=== PATIENT | female | born 1965 | race American Indian/Alaskan Native ===

== ENCOUNTER 2016-11-24 05:50 | Day surgery (SDC) | payer MEDICAID ==
[2016-11-24 06:52] LABS: Basophils % (Auto) 0.9 % (0.0-1.8); Hematocrit 33.9 % (30.3-42.9); Hemoglobin 11.3 gm/dl (10.1-14.3); Mean Corpuscular HGB Conc 34 % (30-34); Mean Corpuscular Hemoglobin 32 pg (28-32); Mean Corpuscular Volume 94 fl (79-97); Platelet Count 303 K/mm3 (140-440); Red Cell Distribution Width 13.4 % (13.2-15.2); White Blood Count 5.5 K/mm3 (4.5-11.0)
[2016-11-24] MEDS ORDERED: NACL 0.9% 500 ML 500 ML IV SCH (07:00)
[2016-11-24 07:02] LABS: Blood Urea Nitrogen 16 mg/dL (7-17); Calcium 8.9 mg/dL (8.4-10.2); Carbon Dioxide 24 mmol/L (22-30); Chloride 103.3 mmol/L (98-107); Glucose 86 mg/dL (65-100); Sodium 140 mmol/L (137-145)
[2016-11-24 07:07] LABS: INR 1.06 (0.87-1.13)
[2016-11-24 07:08] LABS: Anion Gap 17 mmol/L; Potassium 3.8 mmol/L (3.6-5.0)
[2016-11-24] MEDS ORDERED: CALAN ONE (08:01)
[2016-11-24] MEDS ORDERED: XYLOCAINE 2% INFILTRATI ONE (08:01)
[2016-11-24] MEDS ORDERED: HEPARIN/NS 5000 UNIT/500ML(CATH LAB) 1,000 ML IR ONE (08:01)
[2016-11-24] MEDS ORDERED: NITROGLYCERIN SYRINGE 3 ML ONE (08:01)
[2016-11-24] MEDS ORDERED: HEPARIN 10,000 UNITS/10 ML ONE (08:01)
[2016-11-24] MEDS: SUBLIMAZE ONE ×6 (08:28→09:04)
[2016-11-24] MEDS: VERSED ONE ×2 (08:28→08:33)
--- NOTE | 2016-11-24 11:32 | Discharge Summary ---
Short Stay Discharge Plan Activity: advance as tolerated Diet: low fat, low cholesterol, low salt Special Instructions: other (Post cardiac cath instructions) Follow up with: BLAS TREVINO FNP [Primary Care Provider] - 7 Days PIPO FLETCHER MD [Staff Physician] - 7 Days Forms: [employer] PCI D/C Instructions
[2016-11-24 12:04] VITALS: BP 114/85
--- NOTE | 2016-11-27 20:08 | Cardiac Catherization Report ---
HISTORY: The patient is a 50-year-old female with a history of angina and an abnormal stress test. Coronary angiography was recommended. PROCEDURE: Left heart catheterization, ventriculography, and coronary angiography via the right radial artery using 6-Ser[place] Mara catheters and the pigtail catheter. COMPLICATIONS: None. HEMODYNAMICS: Central aortic pressure 103/70, left ventricular pressure 108/21. ANGIOGRAPHIC RESULTS: 1. Left ventricle: The ventriculogram reveals a normal-sized left ventricle with normal systolic function. The ejection fraction is 60-65%. There appears to be left ventricular hypertrophy. 2. Right coronary artery: This is a dominant vessel. The vessel is irregular and tortuous. There are no remarkable lesions. 3. Left coronary artery: Irregular and tortuous. There are no significant lesions. The left main is very short. FINAL IMPRESSION: 1. Angina and an abnormal stress test. There are no significant coronary lesions. Consider coronary spasm. Consider other organ systems as possible etiology of this patient's chest pain. 2. Normal left ventricular function with probable left ventricular hypertrophy. PLAN: Aggressive medical therapy, CAD, risk factor modification. Office followup within 7 days. JOB# [id number] TAMIE/JOSE
== END 2016-11-24 12:35 | disposition home or self-care (01) ==
LOC: CATHLABREC 05:50
PROVIDERS: ATTEND Internal Medicine
DX: I20.9 Angina pectoris, unspecified (principal); I10 Essential (primary) hypertension; F32.9 Major depressive disorder, single episode, unspecified; Z79.899 Other long term (current) drug therapy; Z79.82 Long term (current) use of aspirin; Z98.890 Other specified postprocedural states; Z72.89 Other problems related to lifestyle
CPT/HCPCS: 36415; 80048; 85025; 85610; 85730; 93005; 93010; 93458; C1894; J1644; J2250; J3010; J7040; Q9967